=== PATIENT | female | born 1995 | race Caucasian/White ===

== ENCOUNTER 2017-07-25 10:25 | Emergency (ER) | payer OTHER ==
[~2017-07-25] VITALS: Ht 170.2 cm; Wt 65.8 kg
--- NOTE | 2017-07-25 12:14 | NUR ---
MSE COMPLETED, PT D/C'D HOME, ACI GIVEN, PT AMBULATED W/O DIFF/TOOK ALL BELONGINGS.
[2017-07-25 12:15] VITALS: BP 128/78
== END 2017-07-25 12:16 | disposition home or self-care (01) ==
LOC: ER 10:25
DX: S13.4XXA Sprain of ligaments of cervical spine, initial encounter (principal); S09.90XA Unspecified injury of head, initial encounter; Z88.8 Allergy status to other drugs, medicaments and biological substances; Y04.0XXA Assault by unarmed brawl or fight, initial encounter; Y93.89 Activity, other specified; Y92.89 Other specified places as the place of occurrence of the external cause; Y99.8 Other external cause status
CPT/HCPCS: 70450; 71045; 72125; A4663

== ENCOUNTER 2020-04-23 09:11 | Emergency (ER) | payer OTHER ==
[~2020-04-23] VITALS: Ht 170.2 cm; Wt 59.0 kg
[2020-04-23] MEDS ORDERED: LIDOCAINE 1%-EPI 1:100,000 20 ML VIAL IJ ONE (09:30)
[2020-04-23] MEDS ORDERED: TDAP DIPH,PERTUSS,TET VAC/PF 0.5 ML DISP.SYRIN IM ONE ×2 (09:30→09:37)
[2020-04-23] MEDS ORDERED: CEPH250C PO (09:51)
[2020-04-23] MEDS ORDERED: NEOMY/BACITRA/POLYMYXIN B OINT UD PACKET TP ONE (09:53)
--- NOTE | 2020-04-23 10:04 | NUR ---
Patient discharged to home in stable condition. Written and verbal after care instructions given. Patient verbalizes understanding of instructions. Stressed follow up or return to ER for worsening s/s.
[2020-04-23 10:05] VITALS: BP 129/79
== END 2020-04-23 10:06 | disposition home or self-care (01) ==
LOC: ER 09:11
DX: S41.112A Laceration without foreign body of left upper arm, initial encounter (principal); W26.0XXA Contact with knife, initial encounter; Y93.89 Activity, other specified; Y92.511 Restaurant or cafe as the place of occurrence of the external cause; Y99.0 Civilian activity done for income or pay; F17.200 Nicotine dependence, unspecified, uncomplicated; Z88.8 Allergy status to other drugs, medicaments and biological substances; R03.0 Elevated blood-pressure reading, without diagnosis of hypertension
CPT/HCPCS: 12005; 90471; 90715; 99283; J3490; A4217; A4663

== ENCOUNTER 2020-04-25 00:17 | Emergency (ER) | payer OTHER ==
[~2020-04-25] VITALS: Ht 170.2 cm; Wt 61.2 kg
[~2020-04-25 00:17] MED LIST: CEPH250C PO
--- NOTE | 2020-04-25 00:31 | NUR ---
Dr. Benitez at bedside for MSE
[2020-04-25] MEDS ORDERED: NEOMY/BACITRA/POLYMYXIN B OINT UD PACKET TP ONE ×3 (00:55→01:00)
--- NOTE | 2020-04-25 01:02 | NUR ---
Patient discharged to home in stable condition. Written and verbal after care instructions given. Patient verbalizes understanding of instructions. Stressed follow up or return to ER for worsening s/s. Patient ambulated with steady gait. NAD noted.
[2020-04-25 01:13] VITALS: BP 114/85
== END 2020-04-25 01:02 | disposition home or self-care (01) ==
LOC: ER 00:19
DX: S51.812D Laceration without foreign body of left forearm, subsequent encounter (principal); W45.8XXD Other foreign body or object entering through skin, subsequent encounter; G93.5 Compression of brain; J45.909 Unspecified asthma, uncomplicated; Z79.52 Long term (current) use of systemic steroids
CPT/HCPCS: A4663

== ENCOUNTER 2020-05-04 23:29 | Emergency (ER) | payer OTHER ==
[~2020-05-04] VITALS: Ht 1755.1 cm; Wt 59.0 kg
--- NOTE | 2020-05-04 23:50 | NUR ---
MD QUAN BULLOCK in room to do MSE
[2020-05-05 00:15] VITALS: BP 106/60
--- NOTE | 2020-05-05 00:15 | NUR ---
Patient discharged to home in stable condition. Written and verbal after care instructions given. Patient verbalizes understanding of instructions. Stressed follow up or return to ER for worsening s/s. Patient ambulates with steady gait, left with all personal belongings.
== END 2020-05-05 00:15 | disposition home or self-care (01) ==
LOC: ER 23:32
DX: S51.812D Laceration without foreign body of left forearm, subsequent encounter (principal); W26.0XXD Contact with knife, subsequent encounter; J45.909 Unspecified asthma, uncomplicated
CPT/HCPCS: A4663